=== PATIENT | male | born 1935 | race Caucasian/White ===

== ENCOUNTER 2022-08-26 10:19 | Emergency (ER) | payer BC ==
[~2022-08-26] VITALS: Ht 165.1 cm; Wt 75.0 kg
[2022-08-26 10:26] VITALS: BP 160/84
[2022-08-26] MEDS ORDERED: ACETAMINOPHEN 325MG TABLET PO ONE (15:00)
[2022-08-26] MEDS ORDERED: ACET-2708 MT (16:22)
== END 2022-08-26 19:51 | disposition home or self-care (01) ==
LOC: ER 10:48
DX: S40.011A Contusion of right shoulder, initial encounter (principal); I10 Essential (primary) hypertension; F32.A Depression, unspecified; Z95.0 Presence of cardiac pacemaker; W07.XXXA Fall from chair, initial encounter; Y93.89 Activity, other specified; Y92.018 Other place in single-family (private) house as the place of occurrence of the external cause
CPT/HCPCS: 73030; 73060; 73070; 99284; A4565